=== PATIENT | male | born 1960 | race Caucasian/White ===

== ENCOUNTER 2018-07-13 13:04 | Day surgery (SDC) | payer BC ==
[~2018-07-13] VITALS: Ht 182.9 cm; Wt 116.9 kg
[2018-07-13 13:21] VITALS: BP 109/72; PULSE 58; TEMP 97.8
[2018-07-13] MEDS ORDERED: FLOMAX 0.40.4 MG/CAP PO (13:25)
[2018-07-13] MEDS ORDERED: PRINIVIL20 MG PO (13:25)
[2018-07-13 14:10] VITALS: BP 109/60; PULSE 62; TEMP 98.4
[2018-07-13 14:15] VITALS: BP 88/65; PULSE 64
[2018-07-13 14:30] VITALS: BP 90/55; PULSE 58
[2018-07-13 14:45] VITALS: BP 106/53; PULSE 59
== END 2018-07-13 14:55 | disposition home or self-care (01) ==
LOC: SDCO 13:04
DX: K57.30 Diverticulosis of large intestine without perforation or abscess without bleeding (principal); K64.0 First degree hemorrhoids; I10 Essential (primary) hypertension; N40.0 Benign prostatic hyperplasia without lower urinary tract symptoms
CPT/HCPCS: J2250; J2405; J3010